=== PATIENT | male | born 1940 | race Caucasian/White ===

== ENCOUNTER 2018-08-19 12:36 | Emergency (ER) | payer MEDICARE, OTHER ==
[~2018-08-19] VITALS: Ht 167.6 cm; Wt 72.7 kg
[~2018-08-19 12:36] MED LIST: ERYT-111 PO; MULT1TAB PO; ZOF4T PO; iron; xanax
--- NOTE | 2018-08-19 15:13 | NUR ---
pt is 77 yo male c/o sudden onset of dizziness at 0200, +nausea, "feels like I am on a boat and the room is rocking around", no chest pain/discomfort, no SOB, family at bedside, waiting to be evaluated, pt said he has to move slow and feels better with eyes closed
[2018-08-19] MEDS ORDERED: meclizine 12.5mg tablet PO ONE (15:45)
[2018-08-19] MEDS ORDERED: ondansetron 4mg rapidly disintigrating tab PO ONE (15:45)
[2018-08-19] MEDS ORDERED: LORazepam 1 MG tablet PO ONE (16:20)
--- NOTE | 2018-08-19 17:06 | NUR ---
PT SLEEPING, EASILY AROUSEABLE, PT SAID HE IS FEELING BETTER,
[2018-08-19] MEDS ORDERED: VAL5T PO (17:35)
[2018-08-19] MEDS ORDERED: ONDA4TAB6 PO (17:41)
[2018-08-19 18:01] VITALS: BP 137/92
== END 2018-08-19 18:02 | disposition home or self-care (01) ==
LOC: ER 12:37
DX: R42 Dizziness and giddiness (principal); R11.2 Nausea with vomiting, unspecified; I10 Essential (primary) hypertension; Z88.0 Allergy status to penicillin; Z88.5 Allergy status to narcotic agent; Z79.899 Other long term (current) drug therapy
CPT/HCPCS: 93005; 99284; J8597

== ENCOUNTER 2021-07-22 10:48 | Inpatient (IN) | payer MEDICARE, OTHER ==
[~2021-07-22] VITALS: Ht 167.6 cm; Wt 75.0 kg
[~2021-07-22 10:48] MED LIST changes: +ALPR0.255 PO; +CYAN100T47 PO; -ERYT-111 PO; -MULT1TAB PO; -ZOF4T PO; -iron; -xanax
[2021-07-22 11:28] LABS: CLARITY,URINE CLEAR (Clear); COLOR,URINE YELLOW (Yellow); GLUCOSE, URINE NEGATIVE (Neg); KETONES,URINE NEGATIVE (Neg); LEUKOCYTE ESTERASE ,URINE NEGATIVE (Neg); NITRITES, URINE NEGATIVE (Neg); OCCULT BLOOD,URINE NEGATIVE (Neg); PROTEIN,URINE NEGATIVE (Neg); UROBILINOGEN,URINE 0.2 E.U/dL (0.2-1.0)
[2021-07-22 11:37] LABS: UA COLLECTION TYPE FOLEY CATH
[2021-07-22 12:01] LABS: BASOPHILS % (AUTO) 0.2 % (0-1); EOSINOPHILS # (AUTO) 0.1 X10'3 (0-0.9); EOSINOPHILS % (AUTO) 0.6 % (0-6); HEMATOCRIT 35.7 % (42.0-52.0); HEMOGLOBIN 11.4 g/dl (14.0-17.9); LYMPHOCYTES # (AUTO) 0.8 X10'3 (1.1-4.8); LYMPHOCYTES % (AUTO) 3.8 % (21-51); MEAN CORPUSCULAR HEMOGLOBIN 29.6 PG (27.0-31.0); MEAN CORPUSCULAR HGB CONC 31.9 g/dL (33.0-36.5); MEAN CORPUSCULAR VOLUME 92.8 FL (78-98); MEAN PLATELET VOLUME 7.9 FL (7.4-10.4); MONOCYTES # (AUTO) 1.2 X10'3 (0-0.9); MONOCYTES % (AUTO) 5.9 % (2-12); NEUTROPHILS # (AUTO) 18.5 X10'3 (1.8-7.7); NEUTROPHILS % (AUTO) 89.5 % (42-75); PLATELET COUNT 257 X10'3 (140-440); RED BLOOD COUNT 3.84 X10'6 (4.70-6.10); RED CELL DISTRIBUTION WIDTH 17.2 % (11.5-14.5); WHITE BLOOD COUNT 20.7 X10'3 (4.5-11.0)
[2021-07-22 12:52] LABS: ALANINE AMINOTRANSFERASE 38 U/L (12-78); ALBUMIN 2.1 G/DL (3.4-5.0); ALBUMIN/GLOBULIN RATIO 0.5 (1.1-1.5); ALKALINE PHOSPHATASE 558 IU/L (46-116); ANION GAP 16 (8-16); ASPARTATE AMINO TRANSFERASE 25 U/L (10-37); BLOOD UREA NITROGEN 83 MG/DL (7-18); CALCIUM 9.1 MG/DL (8.5-10.1); CHLORIDE 108 MMOL/L (99-107); CREATININE 1.51 MG/DL (0.60-1.10); GLUCOSE 128 MG/DL (70-104); MAGNESIUM 1.8 MG/DL (1.5-2.4); POTASSIUM 5.1 MMOL/L (3.5-5.1); SODIUM 141 MMOL/L (135-145); TOTAL CARBON DIOXIDE 17.4 MMOL/L (24-32); TOTAL PROTEIN 6.2 G/DL (6.4-8.2); eGFR 45 ML/MIN
[2021-07-22] MEDS ORDERED: normal saline 1000ml 1,000 ML IV ONE ×2 (13:10→22:00)
[2021-07-22] MEDS ORDERED: iohexol 300mg/ml 100ml inj. ONE (14:06)
[2021-07-22] MEDS ORDERED: normal saline 1000ML IV soln IVB ONE (16:20)
--- NOTE | 2021-07-22 16:39 | NUR ---
Daughter is called and updated on patient's admission and results. Patient is updated on Plan of Care. We will continue to hydrate patient.
[2021-07-22] MEDS ORDERED: cefepime 1GM/NS ADD-VANTAGE 100 ML IV ONE (16:50)
[2021-07-22] MEDS ORDERED: vancomycin/NS 1 GM ADD-VANTAGE 250 ML IV ONE (16:50)
[2021-07-22] MEDS ORDERED: cefepime 1GM in D5W 50mL 50 ML IV ONE (17:00)
--- NOTE | 2021-07-22 17:00 | NUR ---
2 smaller MEHREEN drains have little to no output all day. Per daughter, patient was to possibly have these taken out today. Large,lower right drain put out 225cc for dayshift (bile/army green color).
[2021-07-22] MEDS: normal saline 1000ml 1,000 ML IV SCH (17:40)
[2021-07-22] MEDS ORDERED: ondansetron/PF 4mg/2ml inj IV PRN (17:40)
[2021-07-22] MEDS ORDERED: magnesium 2GM in 50ml NS 50 ML IV PRN (17:40)
[2021-07-22] MEDS ORDERED: potassium CL 10mEq/100ml bag 100 ML IV PRN (17:40)
[2021-07-22] MEDS ORDERED: magnesium Cl slow-release 64mg tablet PO PRN (17:40)
[2021-07-22] MEDS ORDERED: potassium Cl 20 mEq SR tablet PO PRN ×2 (17:40)
[2021-07-22] MEDS ORDERED: magnesium 4gm in 100ml NS 100 ML IV PRN (17:40)
[2021-07-22 19:03] LABS: MAGNESIUM 1.5 MG/DL (1.5-2.4); POTASSIUM 4.6 MMOL/L (3.5-5.1)
[2021-07-22] MEDS: K and/or MAG REPLACEMENT MC SCH (19:48)
[2021-07-22] MEDS ORDERED: ASCO-10 PO (19:57)
[2021-07-22] MEDS ORDERED: CHOL100025 PO (19:57)
[2021-07-22] MEDS ORDERED: zinc sulfate PO (19:57)
[2021-07-22] MEDS ORDERED: MULT-382 PO (19:57)
[2021-07-22] MEDS ORDERED: SERT-153 PO (19:57)
[2021-07-22] MEDS: acetaminophen 325mg tablet PO PRN (20:06)
--- NOTE | 2021-07-22 21:24 | NUR ---
Spoke to Dr Carpio concerning pt's bp. He ordered a 500 cc of NS bolus and to recheck BP prior to sending pt to room upstairs.
[2021-07-22] MEDS ORDERED: normal saline 500ml IV soln 1,000 ML IV ONE (21:25)
--- NOTE | 2021-07-22 21:51 | NUR ---
Called Dr Sheldon concerning pt's BP despite IV bolus. Dr sheldon is in room with pt.
--- NOTE | 2021-07-22 21:59 | NUR ---
DR CAO ASSESSED PT. GAVE VERBAL ORDER TO GIVE ANOTHER 500 CC OF NS.
--- NOTE | 2021-07-22 22:11 | NUR ---
CALLED DR CAO WITH PT'S NEWEST BP READING. HE STATED PT MAY NOW BE TAKEN TO ROOM UPSTAIRS. HE REQUESTS BP TO BE READ Q2 HR RATHER THAN Q4HR.
[2021-07-23 02:00] VITALS: BP 93/56
[2021-07-23] MEDS: normal saline 1000ml 1,000 ML IV SCH ×3 (03:40→23:40)
[2021-07-23 06:00] VITALS: BP 90/58
[2021-07-23 06:12] LABS: BASOPHILS # (AUTO) 0.1 X10'3 (0-0.2); BASOPHILS % (AUTO) 0.4 % (0-1); EOSINOPHILS # (AUTO) 0.2 X10'3 (0-0.9); EOSINOPHILS % (AUTO) 1.2 % (0-6); HEMATOCRIT 30.6 % (42.0-52.0); HEMOGLOBIN 9.8 g/dl (14.0-17.9); LYMPHOCYTES # (AUTO) 0.5 X10'3 (1.1-4.8); LYMPHOCYTES % (AUTO) 3.4 % (21-51); MEAN CORPUSCULAR HEMOGLOBIN 29.9 PG (27.0-31.0); MEAN CORPUSCULAR VOLUME 93.2 FL (78-98); MEAN PLATELET VOLUME 7.5 FL (7.4-10.4); MONOCYTES # (AUTO) 0.9 X10'3 (0-0.9); NEUTROPHILS # (AUTO) 13.6 X10'3 (1.8-7.7); PLATELET COUNT 217 X10'3 (140-440); RED BLOOD COUNT 3.29 X10'6 (4.70-6.10); RED CELL DISTRIBUTION WIDTH 16.9 % (11.5-14.5); WHITE BLOOD COUNT 15.3 X10'3 (4.5-11.0)
[2021-07-23 06:36] LABS: ALBUMIN 1.8 G/DL (3.4-5.0); ANION GAP 19 (8-16); BLOOD UREA NITROGEN 58 MG/DL (7-18); BUN/CREATININE RATIO 56.9 (5.4-32.0); CALCIUM 8.3 MG/DL (8.5-10.1); CHLORIDE 114 MMOL/L (99-107); CREATININE 1.02 MG/DL (0.60-1.10); GLUCOSE 79 MG/DL (70-104); MAGNESIUM 1.6 MG/DL (1.5-2.4); POTASSIUM 4.6 MMOL/L (3.5-5.1); SODIUM 147 MMOL/L (135-145); eGFR 70 ML/MIN
[2021-07-23 07:27] LABS: TOTAL CARBON DIOXIDE 13.8 MMOL/L (24-32)
--- NOTE | 2021-07-23 07:35 | NUR ---
Pt Giorgi Morfin Rm 3024-B CO2 13.8 Modeline/RN PCU [id number]
[2021-07-23] MEDS: K and/or MAG REPLACEMENT MC SCH ×2 (08:48→20:00)
[2021-07-23 11:00] VITALS: BP 95/57
[2021-07-23 15:00] VITALS: BP 113/55
[2021-07-23] MEDS ORDERED: sertraline 50mg tablet PO SCH (15:25)
--- NOTE | 2021-07-23 16:17 | NUR ---
Pt Navjot Giorgi Rm 4434-B is very upset, he said he has not eaten for 3 days. I cannot get in touch with Dr. Fidencio Moreno. Patient said he has ever not seen any doctor. Please help! Sharifa/MAHAD PCU [id number]
[2021-07-23] MEDS: sodium bicarbonate (8.4%) inj. 100 MEQ in dextrose 5%-water 1,000 ML IV SCH (16:48)
[2021-07-23] MEDS: piperacillin/tazo 3.375gm/50ml 50 ML IV SCH (16:48)
[2021-07-23 18:00] VITALS: BP 130/85
--- NOTE | 2021-07-23 18:30 | NUR ---
Pt in bed resting c/o his abdominal wound to be dressed, ostomy and MEHREEN intact and patent. Small abdominal wound dressing noted with drainage; wound care done. Pt denied pain.
--- NOTE | 2021-07-23 19:43 | NUR ---
Problems reprioritized. Patient report given, questions answered & plan of care reviewed with Karen/RN.
[2021-07-24] VITALS (7 sets, daily range): BP systolic 89–112; BP diastolic 44–67
[2021-07-24] MEDS: piperacillin/tazo 3.375gm/50ml 50 ML IV SCH ×3 (00:18→16:11)
[2021-07-24 04:29] LABS: BASOPHILS # (AUTO) 0.2 X10'3 (0-0.2); BASOPHILS % (AUTO) 1.5 % (0-1); EOSINOPHILS # (AUTO) 0.3 X10'3 (0-0.9); EOSINOPHILS % (AUTO) 1.8 % (0-6); HEMATOCRIT 30.5 % (42.0-52.0); HEMOGLOBIN 9.9 g/dl (14.0-17.9); LYMPHOCYTES # (AUTO) 0.3 X10'3 (1.1-4.8); LYMPHOCYTES % (AUTO) 2.1 % (21-51); MEAN CORPUSCULAR HEMOGLOBIN 29.6 PG (27.0-31.0); MEAN CORPUSCULAR HGB CONC 32.5 g/dL (33.0-36.5); MEAN CORPUSCULAR VOLUME 91.2 FL (78-98); MEAN PLATELET VOLUME 7.4 FL (7.4-10.4); MONOCYTES # (AUTO) 0.8 X10'3 (0-0.9); MONOCYTES % (AUTO) 4.9 % (2-12); NEUTROPHILS # (AUTO) 13.9 X10'3 (1.8-7.7); NEUTROPHILS % (AUTO) 89.7 % (42-75); PLATELET COUNT 210 X10'3 (140-440); RED BLOOD COUNT 3.34 X10'6 (4.70-6.10); RED CELL DISTRIBUTION WIDTH 16.4 % (11.5-14.5); WHITE BLOOD COUNT 15.5 X10'3 (4.5-11.0)
[2021-07-24 04:38] LABS: ALBUMIN 1.7 G/DL (3.4-5.0); ANION GAP 11 (8-16); BLOOD UREA NITROGEN 36 MG/DL (7-18); BUN/CREATININE RATIO 44.4 (5.4-32.0); CALCIUM 7.9 MG/DL (8.5-10.1); CHLORIDE 108 MMOL/L (99-107); CREATININE 0.81 MG/DL (0.60-1.10); GLUCOSE 97 MG/DL (70-104); MAGNESIUM 1.5 MG/DL (1.5-2.4); SODIUM 139 MMOL/L (135-145); TOTAL CARBON DIOXIDE 20.1 MMOL/L (24-32); eGFR > 90 ML/MIN
[2021-07-24 04:44] LABS: POTASSIUM 3.9 MMOL/L (3.5-5.1)
[2021-07-24] MEDS: sodium bicarbonate (8.4%) inj. 100 MEQ in dextrose 5%-water 1,000 ML IV SCH (05:24)
[2021-07-24] MEDS ORDERED: cholecalciferol (vitamin D3) 1,000 unit (25mcg) tablet PO SCH (08:00)
[2021-07-24] MEDS: multivitamins, therapeutics tablet PO SCH (08:34)
[2021-07-24] MEDS: ascorbic acid 500mg tablet PO SCH (08:34)
[2021-07-24] MEDS: K and/or MAG REPLACEMENT MC SCH ×2 (08:44→20:00)
[2021-07-24] MEDS: normal saline 1000ml 1,000 ML IV SCH (08:56)
[2021-07-24] MEDS: acetaminophen 325mg tablet PO PRN (16:01)
[2021-07-25] MEDS: normal saline 1000ml 1,000 ML IV SCH ×2 (00:41→20:41)
[2021-07-25] MEDS: piperacillin/tazo 3.375gm/50ml 50 ML IV SCH ×4 (01:05→23:36)
[2021-07-25 02:00] VITALS: BP 119/61
[2021-07-25 04:51] LABS: BASOPHILS # (AUTO) 0.1 X10'3 (0-0.2); BASOPHILS % (AUTO) 0.6 % (0-1); EOSINOPHILS # (AUTO) 0.4 X10'3 (0-0.9); EOSINOPHILS % (AUTO) 2.8 % (0-6); HEMATOCRIT 33.2 % (42.0-52.0); LYMPHOCYTES # (AUTO) 0.1 X10'3 (1.1-4.8); LYMPHOCYTES % (AUTO) 0.9 % (21-51); MEAN CORPUSCULAR HEMOGLOBIN 29.8 PG (27.0-31.0); MEAN CORPUSCULAR VOLUME 90.4 FL (78-98); MEAN PLATELET VOLUME 7.6 FL (7.4-10.4); MONOCYTES # (AUTO) 0.7 X10'3 (0-0.9); MONOCYTES % (AUTO) 4.4 % (2-12); NEUTROPHILS # (AUTO) 14.5 X10'3 (1.8-7.7); NEUTROPHILS % (AUTO) 91.3 % (42-75); PLATELET COUNT 193 X10'3 (140-440); RED BLOOD COUNT 3.68 X10'6 (4.70-6.10); WHITE BLOOD COUNT 15.8 X10'3 (4.5-11.0)
[2021-07-25 04:59] LABS: ALBUMIN 1.6 G/DL (3.4-5.0); ANION GAP 12 (8-16); BLOOD UREA NITROGEN 27 MG/DL (7-18); BUN/CREATININE RATIO 24.1 (5.4-32.0); CHLORIDE 103 MMOL/L (99-107); CREATININE 1.12 MG/DL (0.60-1.10); GLUCOSE 130 MG/DL (70-104); MAGNESIUM 1.4 MG/DL (1.5-2.4); SODIUM 136 MMOL/L (135-145); TOTAL CARBON DIOXIDE 20.9 MMOL/L (24-32); eGFR 63 ML/MIN
[2021-07-25 06:00] VITALS: BP 100/53
[2021-07-25] MEDS: multivitamins, therapeutics tablet PO SCH (07:52)
[2021-07-25] MEDS: ascorbic acid 500mg tablet PO SCH (07:52)
[2021-07-25] MEDS: K and/or MAG REPLACEMENT MC SCH ×2 (07:54→20:00)
[2021-07-25 11:00] VITALS: BP 100/56
[2021-07-25] MEDS ORDERED: sincalide inj 1.5 MCG in normal saline 50ml IV soln 50 ML IV ONE (12:45)
[2021-07-25] MEDS ORDERED: sincalide inj 0 MCG in normal saline 50ml IV soln 50 ML IV ONE (16:50)
[2021-07-25 17:00] VITALS: BP 99/59
[2021-07-25] MEDS: acetaminophen 325mg tablet PO PRN (17:23)
[2021-07-25 18:00] VITALS: BP 89/47
--- NOTE | 2021-07-25 19:00 | NUR ---
Pt reported that his ostomy bag has been leaking,; wound and ostomy care done. PM care done. Wound care consult ordered due to redness around the stoma. Pt reported any discomfort
[2021-07-25] MEDS: diatr meglu/diatrizoate 30ml oral sol.-(3 dose) bottle PO SCH (21:10)
[2021-07-25 22:00] VITALS: BP 98/58
[2021-07-26 02:00] VITALS: BP 96/55
[2021-07-26 05:44] LABS: BASOPHILS % (AUTO) 0.3 % (0-1); EOSINOPHILS # (AUTO) 0.6 X10'3 (0-0.9); EOSINOPHILS % (AUTO) 4.1 % (0-6); HEMATOCRIT 30.7 % (42.0-52.0); HEMOGLOBIN 10.1 g/dl (14.0-17.9); LYMPHOCYTES # (AUTO) 0.2 X10'3 (1.1-4.8); LYMPHOCYTES % (AUTO) 1.6 % (21-51); MEAN CORPUSCULAR HEMOGLOBIN 29.6 PG (27.0-31.0); MEAN CORPUSCULAR HGB CONC 32.9 g/dL (33.0-36.5); MEAN CORPUSCULAR VOLUME 89.9 FL (78-98); MEAN PLATELET VOLUME 7.5 FL (7.4-10.4); MONOCYTES # (AUTO) 0.8 X10'3 (0-0.9); MONOCYTES % (AUTO) 5.4 % (2-12); NEUTROPHILS # (AUTO) 13.3 X10'3 (1.8-7.7); NEUTROPHILS % (AUTO) 88.6 % (42-75); PLATELET COUNT 196 X10'3 (140-440); RED BLOOD COUNT 3.42 X10'6 (4.70-6.10); RED CELL DISTRIBUTION WIDTH 15.8 % (11.5-14.5)
[2021-07-26 05:52] LABS: ALBUMIN 1.7 G/DL (3.4-5.0); ANION GAP 10 (8-16); BLOOD UREA NITROGEN 22 MG/DL (7-18); BUN/CREATININE RATIO 23.4 (5.4-32.0); CALCIUM 7.4 MG/DL (8.5-10.1); CHLORIDE 101 MMOL/L (99-107); CREATININE 0.94 MG/DL (0.60-1.10); GLUCOSE 93 MG/DL (70-104); MAGNESIUM 2.3 MG/DL (1.5-2.4); POTASSIUM 4.1 MMOL/L (3.5-5.1); SODIUM 133 MMOL/L (135-145); TOTAL CARBON DIOXIDE 21.7 MMOL/L (24-32); eGFR 77 ML/MIN
[2021-07-26 07:00] VITALS: BP 95/54
[2021-07-26] MEDS: piperacillin/tazo 3.375gm/50ml 50 ML IV SCH ×2 (07:37→15:36)
[2021-07-26] MEDS: diatr meglu/diatrizoate 30ml oral sol.-(3 dose) bottle PO SCH ×2 (07:38→10:25)
[2021-07-26] MEDS: multivitamins, therapeutics tablet PO SCH (07:39)
[2021-07-26] MEDS: ascorbic acid 500mg tablet PO SCH (07:39)
[2021-07-26] MEDS: K and/or MAG REPLACEMENT MC SCH ×2 (08:01→20:00)
[2021-07-26] MEDS ORDERED: iohexol 300mg/ml 100ml inj. ONE (10:21)
[2021-07-26 10:52] VITALS: BP 103/56
--- NOTE | 2021-07-26 13:05 | NUR ---
Pt is alert and oriented, pt states hes not been trained on how to care for his ileostomy. Pt has very active stoma that is flush to abdomen and is denudating skin due to constant liquid effluent. Stoma is 1x 2 inches, currently has on 70 mm pouch that isnt necessary, will recommend to change down to 57mm pouch. During pouch change educated pt and was able to visualize pts abdomen better, pt has several scars present from previous surgery, purulent drainage is actively coming from MLQ scar at distal portion, this was cleansed with normal saline and covered with gauze and abd pad. Pt also has several drains still in place on R side and back, there appears to be a previous drain site directly under stoma about 2 inches, no active purulence noted at this time, but isnt currently approximated. Due to sever denudation from 8-2 oclock recommending daily crusting with stoma powder and sureprep x2, then use of marly ring to prevent further denudation from occurring. Addendum: 07/26/21 at 1306 by Sherrell Montague RN Amended: Links added.
--- NOTE | 2021-07-26 13:29 | NUR ---
Notified Dr. Reeves that patient CT results are in. PAGER ID: [phone] MESSAGE: Patient room 3024B [place] CT scan results are in. Can patient have food? Dg [id number].
[2021-07-26 15:26] VITALS: BP 93/57
[2021-07-26] MEDS: normal saline 1000ml 1,000 ML IV SCH (16:41)
[2021-07-26 18:00] VITALS: BP 97/52
[2021-07-26] MEDS: VANCOMYCIN 1GM/200ML IVPB 200 ML IV SCH (20:24)
[2021-07-26 22:00] VITALS: BP 98/58
[2021-07-27] MEDS: piperacillin/tazo 3.375gm/50ml 50 ML IV SCH ×3 (00:27→15:23)
[2021-07-27 02:00] VITALS: BP 96/51
[2021-07-27 06:00] VITALS: BP 112/61
[2021-07-27 07:07] LABS: BASOPHILS # (AUTO) 0.1 X10'3 (0-0.2); BASOPHILS % (AUTO) 0.7 % (0-1); EOSINOPHILS # (AUTO) 0.6 X10'3 (0-0.9); EOSINOPHILS % (AUTO) 4.8 % (0-6); HEMATOCRIT 30.9 % (42.0-52.0); HEMOGLOBIN 10.4 g/dl (14.0-17.9); LYMPHOCYTES # (AUTO) 0.2 X10'3 (1.1-4.8); LYMPHOCYTES % (AUTO) 1.9 % (21-51); MEAN CORPUSCULAR HEMOGLOBIN 30.1 PG (27.0-31.0); MEAN CORPUSCULAR HGB CONC 33.6 g/dL (33.0-36.5); MEAN CORPUSCULAR VOLUME 89.7 FL (78-98); MEAN PLATELET VOLUME 7.2 FL (7.4-10.4); MONOCYTES # (AUTO) 0.7 X10'3 (0-0.9); MONOCYTES % (AUTO) 5.7 % (2-12); NEUTROPHILS # (AUTO) 11.4 X10'3 (1.8-7.7); NEUTROPHILS % (AUTO) 86.9 % (42-75); PLATELET COUNT 230 X10'3 (140-440); RED BLOOD COUNT 3.44 X10'6 (4.70-6.10); WHITE BLOOD COUNT 13.2 X10'3 (4.5-11.0)
[2021-07-27 07:53] LABS: ALBUMIN 1.7 G/DL (3.4-5.0); ANION GAP 11 (8-16); BLOOD UREA NITROGEN 21 MG/DL (7-18); BUN/CREATININE RATIO 21.9 (5.4-32.0); CALCIUM 7.7 MG/DL (8.5-10.1); CHLORIDE 103 MMOL/L (99-107); CREATININE 0.96 MG/DL (0.60-1.10); GLUCOSE 99 MG/DL (70-104); POTASSIUM 4.2 MMOL/L (3.5-5.1); SODIUM 134 MMOL/L (135-145); TOTAL CARBON DIOXIDE 19.6 MMOL/L (24-32); eGFR 76 ML/MIN
[2021-07-27] MEDS: ascorbic acid 500mg tablet PO SCH (08:03)
[2021-07-27] MEDS: multivitamins, therapeutics tablet PO SCH (08:03)
[2021-07-27] MEDS: VANCOMYCIN 1GM/200ML IVPB 200 ML IV SCH ×2 (08:03→21:50)
[2021-07-27] MEDS: K and/or MAG REPLACEMENT MC SCH ×2 (08:36→19:19)
[2021-07-27 11:00] VITALS: BP 112/58
--- NOTE | 2021-07-27 11:13 | NUR ---
Wound consult re: "ileostomy": Pt transferred from previous facility w/ DOE and metabolic acidosis per EMR. Pt received ileostomy at previous admit 06/03 though was discharged before RD able to give ileostomy diet ed. Provided pt w/ written and verbal ileostomy diet ed w/ RD contact info. Noted pt was also discharged prior admit on Puree/HTL diet, though pt currently denied any chewing or swallowing difficulty. Pt currently on Heart Healthy diet w/ avg intake 50-75% of meals partially meeting needs. Pt also noted to have full thickness wound to R arm, may benefit from Hola smoothies BID to assist w/ wound healing. Also recommend liberalizing to Regular diet given no cardiac hx in EMR. Had 100ml output in ileostomy 07/26 per documentation. Will continue to monitor Recs: 1. Liberalize to Regular diet; no cardiac hx in EMR 2. Hola Smoothies BIDBD; pending MD verification 3. Bowel care per rx 4. Weekly wts Addendum: 07/27/21 at [address] Amended: Links added.
[2021-07-27] MEDS: normal saline 1000ml 1,000 ML IV SCH (13:21)
[2021-07-27 15:00] VITALS: BP 98/64
[2021-07-27] MEDS ORDERED: JUVEN Smoothie Arginine/Glut./Ca2+Bmb (Juven 19.3pkt) 240ml cup PO SCH (17:30)
[2021-07-27 18:00] VITALS: BP 106/66
[2021-07-27 22:00] VITALS: BP 94/61
[2021-07-28] MEDS: piperacillin/tazo 3.375gm/50ml 50 ML IV SCH ×2 (01:13→07:10)
[2021-07-28 02:00] VITALS: BP 103/61
[2021-07-28 06:00] VITALS: BP 96/62
[2021-07-28] MEDS: multivitamins, therapeutics tablet PO SCH (07:11)
[2021-07-28] MEDS: ascorbic acid 500mg tablet PO SCH (07:11)
[2021-07-28] MEDS: K and/or MAG REPLACEMENT MC SCH (08:00)
[2021-07-28] MEDS ORDERED: VANCOMYCIN LEVEL IV ONE (08:00)
[2021-07-28] MEDS: normal saline 1000ml 1,000 ML IV SCH (08:41)
[2021-07-28] MEDS: VANCOMYCIN 1GM/200ML IVPB 200 ML IV SCH (08:48)
[2021-07-28] MEDS ORDERED: PIPE3.3739 IV ×2 (09:55)
[2021-07-28 10:47] LABS: VANCOMYCIN,TROUGH 21.2 UG/ML (6.0-14.0)
[2021-07-28 11:00] VITALS: BP 99/66
[2021-07-28 12:45] LABS: CREATININE 0.83 MG/DL (0.60-1.10); eGFR 89 ML/MIN
--- NOTE | 2021-07-28 13:40 | NUR ---
Report called to [facility], spoke to Nicki TOBIN. All question answer.
--- NOTE | 2021-07-28 14:56 | NUR ---
Ileostomy pouch removed, peristomal skin is noted to have denudation and resolving dermititis. Stoma is flush with os directional center. Peristomal skin cleansed and stoma powder to denuded areas followed by skin prep, placed eakins ring to wafer then drainage bag, he tolerated well. There was noted to be liquid stool in pouch prior to draining. Stoma is oval and measures 25 x 35. Educated him on peristomal skin assessment today. Addendum: 07/28/21 at 1502 by Kelli Smith RN Amended: Links added.
--- NOTE | 2021-07-28 16:02 | NUR ---
Patient discharge from facility to [facility]. Report given to Nicki TOBIN and EMT Tech. Patient left with all personal belongings
[2021-07-28] MEDS ORDERED: vancomycin inj. 750 MG in normal saline 250ml IV soln 250 ML IV SCH (21:00)
[2021-07-29] MEDS ORDERED: VANCOMYCIN LEVEL IV ONE (20:30)
== END 2021-07-28 16:01 | DRG 871 ==
LOC: ER 10:49 → ED HOLD 17:40 → PCU 3S 22:30
PROVIDERS: ADMIT Internal Medicine; ATTEND Internal Medicine
PROC: BW211ZZ Computerized Tomography (CT Scan) of Abdomen and Pelvis using Low Osmolar Contrast (ICD-10-PCS; principal; 2021-07-22)
PROC: BW211ZZ Computerized Tomography (CT Scan) of Abdomen and Pelvis using Low Osmolar Contrast (ICD-10-PCS; 2021-07-26)
DX: A41.9 Sepsis, unspecified organism (principal); N17.0 Acute kidney failure with tubular necrosis; Q43.1 Hirschsprung's disease; L02.211 Cutaneous abscess of abdominal wall; E87.2 Acidosis; E86.0 Dehydration; F32.A Depression, unspecified; K81.9 Cholecystitis, unspecified; Z87.19 Personal history of other diseases of the digestive system; Z88.5 Allergy status to narcotic agent; Z79.899 Other long term (current) drug therapy
CPT/HCPCS: 36415; 74177; 80048; 80053; 80202; 81003; 82565; 83605; 83735; 84132; 84145; 85025; 87070; 87077; 87081; 87186; 93005; 96361; 96365; 97110; 97116; 97162; 99285; G0378; J0692; J2543; J3370; J3475; J3490; J7030; J7040; J7070; Q9963; Q9967